=== PATIENT | male | born 1945 | race Caucasian/White ===

== ENCOUNTER 2017-07-07 11:32 | Emergency (ER) | payer MEDICARE, OTHER ==
[2017-07-07 11:35] VITALS: BP 155/79
[2017-07-07 12:14] LABS: BASO % 1 % (0-3); EOS # 0.5 x10^3/uL (0.0-0.7); EOS % 9 % (0-3); HEMATOCRIT 41.9 % (39.0-53.0); HEMOGLOBIN 13.9 g/dL (13.0-17.5); LYMPH # 0.8 x10^3/uL (1.0-4.8); LYMPH % 15 % (24-48); MEAN CORPUSCULAR HEMOGLOBIN 33 pg (25-35); MEAN CORPUSCULAR HGB CONC 33 g/dL (31-37); MEAN CORPUSCULAR VOLUME 100 fL (79-100); MONO # 1.4 x10^3/uL (0.0-1.1); MONO % 25 % (0-9); NEUT # 2.7 x10^3uL (1.8-7.7); NEUT % 50 % (31-73); PLATELET COUNT 164 x10^3/uL (140-400); RED BLOOD COUNT 4.21 x10^6/uL (4.30-5.70); RED CELL DISTRIBUTION WIDTH 17.9 % (11.5-14.5); WHITE BLOOD COUNT 5.4 x10^3/uL (4.0-11.0)
--- NOTE | 2017-07-07 12:18 | PHYS DOC ---
Adult General Chief Complaint Chief Complaint: CHEST PAIN HPI HPI Patient is a 72-year-old male presenting to the emergency department for evaluation of chest pain that has been a lingering issue for the past 2-3 weeks. Patient says that it is in his lower sternum sharp with no radiation and is not associated with nausea vomiting shortness of breath or diaphoresis. He says just laying still he has no pain but if he moves his torso coughs or takes a deep breath he feels a sharp pain in the center of his chest. He says that the pain has moved around a little bit over the past week to his left chest and across his shoulder blades. Patient is being treated with by mouth chemotherapy for multiple myeloma and he says that he has traveled recently to [facility] and [place]. He cannot take NSAIDs for pain so he is only been taking Tylenol. Review of Systems Review of Systems Constitutional: Denies fever or chills [] Eyes: Denies change in visual acuity, redness, or eye pain [] HENT: Denies nasal congestion or sore throat [] Respiratory: + cough. No shortness of breath [] Cardiovascular: + CP GI: Denies abdominal pain, nausea, vomiting, bloody stools or diarrhea [] : Denies dysuria or hematuria [] Musculoskeletal: + back pain. No joint pain [] Integument: Denies rash or skin lesions [] Neurologic: Denies headache, focal weakness or sensory changes [] Current Medications Current Medications Current Medications Medications (Trade) Dose Ordered Sig/Grady Start Time Stop Time Status Last Admin Dose Admin Fentanyl Citrate (Fentanyl 2ml Vial) 50 mcg 1X ONCE 07/07/17 12:15 07/07/17 12:16 UNV Physical Exam Physical Exam Constitutional: Well developed, well nourished, no acute distress, non-toxic appearance. [] HENT: Normocephalic, atraumatic, bilateral external ears normal, oropharynx moist, no oral exudates, nose normal. [] Eyes: PERRLA, EOMI, conjunctiva normal, no discharge. [] Neck: Normal range of motion, no tenderness, supple, no stridor. [] Cardiovascular:Heart rate regular rhythm, no murmur [] Lungs & Thorax: Bilateral breath sounds clear to auscultation. Patient with exquisite tenderness to palpation of his lower sternum. When trying to set him up to listen to his lungs he has a great agreeable difficulty and has to sit up from a sideways position as it hurts too much to sit straight up. Abdomen: Bowel sounds normal, soft, no tenderness, no masses, no pulsatile masses. [] Skin: Warm, dry, no erythema, no rash. [] Back: No tenderness, no CVA tenderness. [] Extremities: No tenderness, no cyanosis, no clubbing, ROM intact, no edema. [] Neurologic: Alert and oriented X 3, normal motor function, normal sensory function, no focal deficits noted. [] EKG EKG Sinus rhythm at 60 beats per minutes with leftward axis no obvious ST elevation or depression and normal T waves. Radiology/Procedures Radiology/Procedures Portable chest, 07/07/2017: History: Chest pain Comparison is made to a study from 05/22/2013. The heart is enlarged. There is tortuosity of the thoracic aorta. The pulmonary vascularity is normal. There are mild streaky basilar opacities similar to those seen on the previous study. The findings suggest scarring and/or recurrent atelectasis. The upper lung oswald are clear. No pleural fluid is evident. IMPRESSION: 1. Cardiomegaly and aortic ectasia. 2. Mild bibasilar scarring and/or atelectasis. DICTATED AND SIGNED BY: NANCY MEZA MD DATE: 07/07/17 1229 Course & Med Decision Making Course & Med Decision Making Patient has symptoms consistent with costochondritis and pleurisy. His vital signs are normal and his EKG are normal. The only other consideration is pulmonary embolus him given his cancer history and recent travel. We'll check d -dimer and if positive will need CT angiogram. Labs are all very normal and patient continues to have normal vital signs and pain is improved with fentanyl. Patient will be discharged with [place] for pain and he is following with his oncologist on Sunday and I told him to ask if it is okay to do NSAIDs for a short period of time. His oncologist told him it is not okay to do NSAIDs but he may improve faster if he can do a short course. Patient aware and agreeable with plan for discharge and verbalized understanding of the need for short-term follow-up in the strict ED return precautions discussed worsening pain shortness of breath or other general concerns. Dragon Disclaimer Dragon Disclaimer This chart was dictated in whole or in part using Voice Recognition software in a busy, high-work load, and often noisy Emergency Department environment. It may contain unintended and wholly unrecognized errors or omissions. Departure Departure: Impression: Primary Impression: Chest wall pain Additional Impression: Pleurisy Disposition: 01 HOME, SELF-CARE Condition: STABLE Referrals: TANYA COON (PCP) Patient Instructions: Costochondritis, Pleurisy Scripts Hydrocodone Bit/Acetaminophen (NORCO 5-325 TABLET) 1 Each Tablet 1 TAB PO PRN Q6HRS Y for PAIN, #20 TAB 0 Refills Prov: JAMES JULES DO 07/07/17 Problem Qualifiers JAMES JULES DO Jul 07, 2017 12:18
[2017-07-07 12:24] LABS: ALBUMIN 3.4 g/dL (3.4-5.0); CALCIUM 8.9 mg/dL (8.5-10.1); CREATININE 0.9 mg/dL (0.7-1.3); GFR 82.7; MAGNESIUM 2.1 mg/dL (1.8-2.4); TOTAL BILIRUBIN 0.3 mg/dL (0.2-1.0); TOTAL PROTEIN 6.7 g/dL (6.4-8.2)
--- NOTE | 2017-07-07 12:33 | RAD ---
Portable chest, 07/07/2017: History: Chest pain Comparison is made to a study from 05/22/2013. The heart is enlarged. There is tortuosity of the thoracic aorta. The pulmonary vascularity is normal. There are mild streaky basilar opacities similar to those seen on the previous study. The findings suggest scarring and/or recurrent atelectasis. The upper lung oswald are clear. No pleural fluid is evident. IMPRESSION: 1. Cardiomegaly and aortic ectasia. 2. Mild bibasilar scarring and/or atelectasis.
[2017-07-07] MEDS ORDERED: HYDR-971 PO (13:00)
--- NOTE | 2017-07-07 14:26 | EKG ---
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
== END 2017-07-07 13:15 | disposition home or self-care (01) ==
LOC: ER 11:32
DX: R09.1 Pleurisy (principal); M54.9 Dorsalgia, unspecified
CPT/HCPCS: 36415; 71010; 80053; 83690; 83735; 84484; 85025; 85379; 85610; 85730; 93005; 96374; 99285; J3010

== ENCOUNTER → 2017-08-10 | Outpatient (CLI) | payer MEDICARE, OTHER ==
[~2017-08-10] MED LIST: HYDR-971 PO
--- NOTE | 2017-08-10 16:20 | RAD ---
EXAM: Carotid Doppler sonogram. 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 TECHNIQUE: Queen scale and color Doppler sonographic evaluation of the neck with spectral waveform analysis was performed and static images are submitted for review. FINDINGS: RIGHT: The peak systolic velocity within the common carotid artery is 81 cm/sec. The peak systolic velocity within the internal carotid artery is 74 cm/sec and the end diastolic velocity within the internal carotid artery is 25 cm/sec. The ICA/CCA ratio is 0.91. Grayscale images demonstrate no grayscale stenosis. LEFT: The peak systolic velocity within the common carotid artery is 83 cm/sec. The peak systolic velocity within the internal carotid artery is 81 cm/sec and the end diastolic velocity within the internal carotid artery is 31 cm/sec. The ICA/CCA ratio is 0.98. Grayscale images demonstrate no grayscale stenosis. There is antegrade flow within both vertebral arteries. IMPRESSION: 1. No evidence of hemodynamically significant stenosis. PQRS Compliance Statement - Stenosis calculations for CT, MR and conventional angiography are based upon measurement of the distal ICA diameter in accordance with the NASCET methodology. Stenosis calculations for carotid ultrasound studies are derived from validated velocity criteria which are known to correlate with the NASCET methodology.
== END | disposition home or self-care (01) ==
LOC: US 12:53
PROVIDERS: ATTEND Nurse Practitioner Family
DX: H34.231 Retinal artery branch occlusion, right eye (principal)
CPT/HCPCS: 93880

== ENCOUNTER → 2017-08-14 | Outpatient (CLI) | payer MEDICARE, OTHER ==
--- NOTE | 2017-08-14 15:56 | CARD ---
APPROVED REPORT EXAM: Two-dimensional and M-mode echocardiogram with Doppler and color Doppler. Other Information Quality : Average Rhythm : NSR INDICATION Retinol artery thrombosis 2D DIMENSIONS RVDd3.7 (2.9-3.5cm)Left Atrium(2D)3.1 (1.6-4.0cm) IVSd1.2 (0.7-1.1cm)Aortic Root(2D)3.3 (2.0-3.7cm) LVDd5.0 (3.9-5.9cm)LVOT Diameter2.6 (1.8-2.4cm) PWd1.2 (0.7-1.1cm)LVDs3.5 (2.5-4.0cm) FS (%) 30.2 %SV69.0 ml LVEF(%)57.2 (>50%) Aortic Valve AoV Peak Ari.165.7cm/sAoV VTI29.2cm AO Peak GR.11.0mmHgLVOT Peak Ari.114.8cm/s LVOT VTI 22.60cmAO Mean GR.5mmHg MITALI (VMAX)3.97cy6KYB (VTI)4.09cm2 Mitral Valve MV E Gpgzgvqz41.3cm/sMV DECEL NSOY433nt MV A Rbzuyjjd01.2cm/sMV UOR29ba E/A Ratio0.8MV A Fglhtqgj062ry MVA (PHT)3.45cm2 Tricuspid Valve TR P. Vcrvztil564qq/sRAP DKZGYHJA1ohDx TR Peak Gr.52uiKwTVLC43uwRk LEFT VENTRICLE The left ventricle is normal size. There is borderline concentric left ventricular hypertrophy. Left ventricle systolic function is normal. The Ejection Fraction is 55-60%. There is normal LV segmental wall motion. Tissue Doppler imaging reveals mild left ventricular diastolic dysfunction. RIGHT VENTRICLE The right ventricle is normal size. The right ventricular systolic function is normal. ATRIA The left atrium size is normal. The right atrium size is normal. The interatrial septum is intact wit h no evidence for an atrial septal defect or patent foramen ovale as noted on 2-D or Doppler imaging. AORTIC VALVE The aortic valve is mildly calcified but opens well. Doppler and Color Flow revealed no significant a ortic regurgitation. There is no significant aortic valvular stenosis. MITRAL VALVE Mitral annular calcification is mild. There is no mitral valve stenosis. Doppler and Color Flow revea led no mitral valve regurgitation noted. TRICUSPID VALVE The tricuspid valve is not well visualized. Doppler and Color Flow revealed mild tricuspid regurgitat ion. The PA pressure was estimated at 45 mmHg. There is no tricuspid valve stenosis. PULMONIC VALVE The pulmonic valve is not well visualized. Doppler and Color Flow revealed no pulmonic valvular regur gitation. There is no pulmonic valvular stenosis. GREAT VESSELS The aortic root is normal in size. Pulmonary veins not recorded. The IVC is normal in size and collap ses >50% with inspiration. PERICARDIAL EFFUSION There is no evidence of significant pericardial effusion. Critical Notification Critical Value: No <Conclusion> Left ventricle systolic function is normal. The Ejection Fraction is 55-60%. There is normal LV segmental wall motion. Doppler and Color Flow revealed mild tricuspid regurgitation. The PA pressure was estimated at 45 mmH g. No evidence of thrombus or PFO. If there is strong clinical suspicion for cardiac source of embolic, recommend PATRICK.
== END | disposition home or self-care (01) ==
LOC: ECHO 13:39
PROVIDERS: ATTEND Nurse Practitioner Family
DX: I07.1 Rheumatic tricuspid insufficiency (principal); I70.0 Atherosclerosis of aorta
CPT/HCPCS: 93306